=== PATIENT | male | born 1940 | race Caucasian/White ===

== ENCOUNTER → 2016-08-13 | Outpatient (CLI) | payer OTHER ==
[~2016-08-13] MED LIST: ASPIR 8181 MG PO; COZAAR100 MG PO; LORTAB 5-325 M1 EACH PO; METOPROLOL TART25 MG PO; NITROSTAT0.4 MG SL; NORVASC2.5 MG PO; RANITIDINE HCL300 MG PO; SYNTHROID88 MCG PO; ZOCOR20 MG PO
[2016-08-13 10:41] LABS: HEMOGLOBIN 16.5 gm/dl (14.0-17.5); RED BLOOD COUNT 4.95 M/UL (4.20-5.50); WHITE BLOOD COUNT 7.8 K/UL (4.5-11.0)
== END ==
LOC: LAB 09:14
PROVIDERS: Internal Medicine
DX: Z01.810 Encounter for preprocedural cardiovascular examination (principal); Z88.0 Allergy status to penicillin; Z88.8 Allergy status to other drugs, medicaments and biological substances
CPT/HCPCS: 36415; 80048; 85025; 85610; 85730; 93005

== ENCOUNTER → 2016-08-16 | Outpatient (CLI) | payer OTHER | END | disposition home or self-care (01) | LOC: CATH 07:17 | DX: I25.119 Atherosclerotic heart disease of native coronary artery with unspecified angina pectoris (principal); R94.39 Abnormal result of other cardiovascular function study; R07.9 Chest pain, unspecified; I11.0 Hypertensive heart disease with heart failure; I50.9 Heart failure, unspecified; E78.5 Hyperlipidemia, unspecified; J44.9 Chronic obstructive pulmonary disease, unspecified; E03.9 Hypothyroidism, unspecified; Z95.1 Presence of aortocoronary bypass graft; Z88.0 Allergy status to penicillin; Z88.8 Allergy status to other drugs, medicaments and biological substances; Z87.891 Personal history of nicotine dependence; Z79.82 Long term (current) use of aspirin; Z79.891 Long term (current) use of opiate analgesic; Z79.899 Other long term (current) drug therapy; J30.9 Allergic rhinitis, unspecified; M19.90 Unspecified osteoarthritis, unspecified site; H26.9 Unspecified cataract; G43.909 Migraine, unspecified, not intractable, without status migrainosus; Z87.19 Personal history of other diseases of the digestive system; Z86.69 Personal history of other diseases of the nervous system and sense organs; N42.9 Disorder of prostate, unspecified | CPT/HCPCS: 93005; C1769; C1887; J0583; J1644; J2250; J3010; J7030; Q9963 ==

== ENCOUNTER 2020-06-03 08:08 | Emergency (ER) | payer OTHER ==
[~2020-06-03 08:08] MED LIST changes: +HYDROCHLOROTHIA25 MG PO; +LEVAQUIN500 MG PO; +METOPROLOL TART50 MG PO; +MUCINEX600 MG PO; +PROVENTIL HFA 61 INH INH; +TAMIFLU30 MG PO
[2020-06-03 09:32] LABS: HEMOGLOBIN 15.7 gm/dl (14.0-17.5); RED BLOOD COUNT 4.83 M/UL (4.20-5.50); WHITE BLOOD COUNT 6.7 K/UL (4.5-11.0)
[2020-06-03 09:55] LABS: BUN/CREATININE RATIO 14 (0-10)
== END 2020-06-03 10:27 | disposition home or self-care (01) ==
LOC: ER1 08:08
PROVIDERS: Physician Assistant
DX: J06.9 Acute upper respiratory infection, unspecified (principal); I25.10 Atherosclerotic heart disease of native coronary artery without angina pectoris; J44.9 Chronic obstructive pulmonary disease, unspecified; I10 Essential (primary) hypertension; Z87.891 Personal history of nicotine dependence; Z79.82 Long term (current) use of aspirin; Z88.0 Allergy status to penicillin; Z88.2 Allergy status to sulfonamides; Z95.1 Presence of aortocoronary bypass graft
CPT/HCPCS: 71045; 80053; 82550; 82553; 83874; 84484; 85025; 99284

== ENCOUNTER → 2020-08-19 | Outpatient (CLI) | payer OTHER | LOC: KOH-I 08:59 | DX: J32.9 Chronic sinusitis, unspecified (principal); J34.89 Other specified disorders of nose and nasal sinuses | CPT/HCPCS: 70486 ==

== ENCOUNTER → 2020-08-27 | Outpatient (CLI) | payer OTHER ==
[2020-08-27 11:51] LABS: HEMOGLOBIN 15.7 gm/dl (14.0-17.5); RED BLOOD COUNT 4.76 M/UL (4.20-5.50); WHITE BLOOD COUNT 7.7 K/UL (4.5-11.0)
== END ==
LOC: LAB 09:52
PROVIDERS: Family Medicine
DX: E78.5 Hyperlipidemia, unspecified (principal); R53.83 Other fatigue; I10 Essential (primary) hypertension; E55.9 Vitamin D deficiency, unspecified
CPT/HCPCS: 36415; 80053; 80061; 84439; 84443; 85027

== ENCOUNTER → 2021-10-22 | Outpatient (CLI) | payer OTHER | LOC: US 09:07 → CT 11:30 | DX: M25.562 Pain in left knee (principal); R11.0 Nausea; R10.13 Epigastric pain; R10.31 Right lower quadrant pain; I10 Essential (primary) hypertension | CPT/HCPCS: 36415; 73560; 76705; 82565; Q9967 ==